=== PATIENT | female | born 1955 | race Caucasian/White ===

== ENCOUNTER → 2016-12-12 | Outpatient (CLI) | payer OTHER | LOC: FIMAGING 14:40 | PROVIDERS: ATTEND Nurse Practitioner Women's Health | DX: Z12.31 Encounter for screening mammogram for malignant neoplasm of breast (principal); Z80.3 Family history of malignant neoplasm of breast | CPT/HCPCS: G0202 ==

== ENCOUNTER → 2017-01-23 | Outpatient (CLI) | payer OTHER | LOC: FIMAGING 11:08 | PROVIDERS: ATTEND Nurse Practitioner Women's Health | DX: Z13.820 Encounter for screening for osteoporosis (principal); M85.9 Disorder of bone density and structure, unspecified ==

== ENCOUNTER 2017-03-18 09:02 | Emergency (ER) | payer OTHER ==
--- NOTE | 2017-03-18 09:18 | CPEKG ---
Heart Rate: 51 RR Interval: 1176 P-R Interval: 200 QRSD Interval: 84 QT Interval: 440 QTC Interval: 406 P [place]: 52 QRS [place]: 55 T Wave [place]: 64 EKG Severity - BORDERLINE ECG - EKG Impression: SINUS RHYTHM EKG Impression: BORDERLINE T ABNORMALITIES, ANT-LAT LEADS Electronically Signed By: Rocio Crow 18-Mar-2017 15:27:18
--- NOTE | 2017-03-18 10:04 | EDPHY ---
H & P Time Seen by Provider: 03/18/17 09:50 HPI/ROS: CHIEF COMPLAINT: Chest pain HISTORY OF PRESENT ILLNESS: The patient is a 61-year-old female who presents emergency department with left-sided chest pain and neck pain. Patient states that she has a history of coronary artery disease. 3 years ago she came to the emergency department for left neck pain. She underwent a significant workup and nothing was found. However, 3 months later, Dr. Price performed a coronary catheterization and stents were placed. Patient states she woke this morning at 6:00 a.m. with a sharp left-sided chest pain. She states she has pain radiating to her neck. This is more vague and strange. Her neck pain is similar to previous episode of neck pain when she ultimately had coronary stenting. She has never had chest pain previously. She denies leg pain or swelling. No cough or shortness of breath. No fevers or chills. REVIEW OF SYSTEMS: My complete review of systems is negative except as mentioned in the HPI. Past Medical/Surgical History: Includes coronary artery disease, hypothyroidism Past surgical history: Includes tubal ligation, cardiac stent placement Social history: The patient does not smoke Smoking Status: Never smoked Physical Exam: Vitals noted. 161/79, 59, 18, 99% on room air GENERAL: Well-appearing, in no acute distress, alert. HEENT: Eyes normal to inspection, normal pharynx, no signs of dehydration. NECK: [No thyromegaly, no lymphadenopathy, supple. RESPIRATORY: Clear to auscultation bilaterally, no rales, rhonchi or wheezing. CVS: Regular rate and rhythm, no rubs, murmurs, or gallops. No chest wall tenderness palpation. No rash. ABDOMEN: Soft, nontender, nondistended, no organomegaly. BACK: Normal to inspection, no CVA tenderness. SKIN: Normal color, no rash, warm, dry. No pallor. EXTREMITIES: No pedal edema, no calf tenderness, no Homans sign or cords, no joint swelling. NEURO/PSYCH: Alert and oriented x3, normal mood and affect, normal motor sensory exam. No obvious cranial nerve deficit. Constitutional: Initial Vital Signs Temperature (C) 36.5 C 03/18/17 09:05 Heart Rate 59 L 03/18/17 09:05 Respiratory Rate 18 03/18/17 09:05 Blood Pressure 161/79 H 03/18/17 09:05 O2 Sat (%) 99 03/18/17 09:05 O2 Delivery Mode Room Air Allergies/Adverse Reactions: No Known Allergies Allergy (Verified 03/18/17 09:08) Home Medications: Medication Instructions Recorded Aspirin EC [Aspirin EC 81 mg (*)] 81 mg PO DAILY 03/18/17 Nebivolol HCl [Bystolic] 2.5 mg PO 03/18/17 Rosuvastatin Calcium [Crestor 20mg 20 mg PO DAILY 03/18/17 (*)] THYROID 30 mg PO 03/18/17 Medical Decision Making - Diagnostics Imaging Results: Imaging Impressions Chest X-Ray 03/18/17 10:07 Impression: Mild cardiomegaly. ED Course/Re-evaluation: In the emergency department I discussed possible etiologies with the patient. I answered all her questions. IV was placed. Laboratory studies were obtained. EKG and chest x-ray were ordered. EKG shows normal sinus rhythm, normal rate, normal axis, normal intervals. There are no ST or T-wave abnormalities. EKG is normal as interpreted by me. Unchanged from previous on 05/15/2014 Troponin and laboratory studies are unremarkable. I discussed the case with Dr. Espinal from Cardiology. He came to the emergency department to evaluate the patient. After Dr. Espinal evaluation, he recommended patient had repeat EKG and troponin at noon. If these are negative the patient can be discharged. I rechecked the patient while here. She was resting comfortably in the bed. She had no complaints. She was noted to be bradycardic. I discussed with the patient. She states she is bradycardic at baseline. It has worsened slightly since she started to beta gail. She denies any lightheadedness or dizziness. Repeat troponin is negative. EKG is unchanged. It is noted to show bradycardia 42. I went and re-evaluated the patient. She is not lightheaded or dizzy. She had normal blood pressure. She states her heart rate does range in the 30s to 40s at baseline. I discussed the results with the patient. I answered all her questions. She is given warnings prior to leaving. She will return with worsening symptoms. Differential Diagnosis: My differential includes but is not limited to ACS, acute DC, dysrhythmia, pulmonary embolus, pneumonia, bronchitis, dissection, aneurysm - Data Points Laboratory Results: Laboratory Results 03/18/17 09:18 03/18/17 09:18 03/18/17 03/18/17 03/18/17 12:52 09:18 09:18 WBC RBC Hgb Hct MCV MCH MCHC RDW Plt Count MPV Neut % (Auto) Lymph % (Auto) [place] % (Auto) Eos % (Auto) Baso % (Auto) Nucleat RBC Rel Count Absolute Neuts (auto) Absolute Lymphs (auto) Absolute Monos (auto) Absolute Eos (auto) Absolute Basos (auto) Absolute Nucleated RBC Immature Gran % Immature Gran # D-Dimer < 0.27 ug/mLFEU ug/mLFEU (0.00-0.50) Sodium 145 mEq/L mEq/L (135-145) Potassium 4.6 mEq/L mEq/L (3.5-5.2) Chloride 105 mEq/L mEq/L (97-110) Carbon Dioxide 24 mEq/l mEq/l (22-31) Anion Gap 16 mEq/L mEq/L (8-16) BUN 16 mg/dL mg/dL (7-23) Creatinine 0.8 mg/dL mg/dL (0.6-1.0) Estimated GFR > 60 Glucose 93 mg/dL mg/dL (70-100) Calcium 10.0 mg/dL mg/dL (8.5-10.4) Total Bilirubin 0.5 mg/dL mg/dL (0.1-1.4) Conjugated Bilirubin 0.3 mg/dL mg/dL (0.0-0.5) Unconjugated Bilirubin 0.2 mg/dL mg/dL (0.0-1.1) AST 27 IU/L IU/L (14-46) ALT 39 IU/L IU/L (9-52) Alkaline Phosphatase 50 IU/L IU/L (38-126) Troponin I < 0.012 ng/mL ng/mL < 0.012 ng/mL ng/mL (0.000-0.034) (0.000-0.034) Total Protein 7.2 g/dL g/dL (6.3-8.2) Albumin 4.5 g/dL g/dL (3.5-5.0) Lipase 67 IU/L IU/L (23-300) 03/18/17 09:18 WBC 5.25 10^3/uL 10^3/uL (3.80-9.50) RBC 4.59 10^6/uL 10^6/uL (4.18-5.33) Hgb 14.8 g/dL g/dL (12.6-16.3) Hct 43.0 % % (38.0-47.0) MCV 93.7 fL fL (81.5-99.8) MCH 32.2 pg pg (27.9-34.1) MCHC 34.4 g/dL g/dL (32.4-36.7) RDW 11.8 % % (11.5-15.2) Plt Count 184 10^3/uL 10^3/uL (150-400) MPV 10.0 fL fL (8.7-11.7) Neut % (Auto) 54.1 % % (39.3-74.2) Lymph % (Auto) 37.5 % % (15.0-45.0) [place] % (Auto) 6.5 % % (4.5-13.0) Eos % (Auto) 1.1 % % (0.6-7.6) Baso % (Auto) 0.6 % % (0.3-1.7) Nucleat RBC Rel Count 0.0 % % (0.0-0.2) Absolute Neuts (auto) 2.84 10^3/uL 10^3/uL (1.70-6.50) Absolute Lymphs (auto) 1.97 10^3/uL 10^3/uL (1.00-3.00) Absolute Monos (auto) 0.34 10^3/uL 10^3/uL (0.30-0.80) Absolute Eos (auto) 0.06 10^3/uL 10^3/uL (0.03-0.40) Absolute Basos (auto) 0.03 10^3/uL 10^3/uL (0.02-0.10) Absolute Nucleated RBC 0.00 10^3/uL 10^3/uL (0-0.01) Immature Gran % 0.2 % % (0.0-1.1) Immature Gran # 0.01 10^3/uL 10^3/uL (0.00-0.10) D-Dimer Sodium Potassium Chloride Carbon Dioxide Anion Gap BUN Creatinine Estimated GFR Glucose Calcium Total Bilirubin Conjugated Bilirubin Unconjugated Bilirubin AST ALT Alkaline Phosphatase Troponin I Total Protein Albumin Lipase Medications Given: Discontinued Medications Aspirin (Aspirin) 324 mg PO EDNOW ONE Stop: 03/18/17 10:08 Last Admin: 03/18/17 10:11 Dose: 324 mg Departure - Departure Disposition: Home, Routine, Self-Care Clinical Impression: Chest pain Qualifiers: Chest pain type: unspecified Qualified Code(s): R07.9 - Chest pain, unspecified Condition: Good Instructions: Chest Pain (ED) Additional Instructions: Return with increasing chest pain, shortness of breath, fever, chills, persistent cough or any other concerns. Referrals: Mirtha Remy MD [Primary Care Provider] - As per Instructions Yesenia Singh MD [Medical Doctor] - 2-3 days, call for appt.
[2017-03-18] MEDS ORDERED: ASPIRIN 81 MG CHEWABLE TAB PO ONE (10:07)
[2017-03-18 10:13] LABS: PLATELET COUNT 184 10^3/uL (150-400)
--- NOTE | 2017-03-18 12:16 | GCON ---
[f rep st] CONSULTATION CARDIOLOGY CONSULTATION DATE OF CONSULTATION: 03/18/2017 REFERRING PHYSICIAN: Yesenia Singh MD INDICATION: Chest pain, known CAD. HISTORY OF PRESENT ILLNESS: The patient is a pleasant 61-year-old female, who is typically followed as an outpatient by Dr. Yesenia Singh. She has known coronary disease. She initially presented back in 2004 with chest and left neck discomfort. She was worked up by Dr. Rasheed Noland. At that time, antionette arently, she had a stress test, which indicated apical ischemia. That prompted the performance of a cardiac catheterization and ultimately PCI and stenting of the LAD and balloon angioplasty of what wa s likely a diagonal branch. Additionally, she has a history of palpitations related to PVCs. Her ri sk factors include hypertension and hyperlipidemia. She is seen in the emergency department with chest and left jaw discomfort. She notes that she has b een under a great deal of stress recently. Apparently, her mother about a month ago, and she is in a contentious relationship with her brother regarding the estate. Over the last month, she has b een experiencing worsening palpitations. Additionally, she has had a near-continuous sensation of le ft neck and jaw "unusual sensation." She does not describe this as pain. Occasionally, it is burnin g in character. The symptoms occur both with physical activities and at rest. They are not associat ed with meals. She has not been sleeping well. She also describes fatigue. She came into the emerg ency department today because she also experienced fleeting left-sided breast pain. This was describ ed as sharp and evolving into a dull pain. She had episodes where she had pain for 10 minutes, and t hen the pain would go away for 5-10 minutes and return. Currently, these symptoms are gone. The sym ptoms began about 6 o'clock this morning. On arrival, she was hypertensive with a blood pressure 161/79 and a resting heart rate of 59 beats pe r minute. Her initial electrocardiogram demonstrated sinus bradycardia with T-wave inversions noted in V2 and V3. These are unchanged when compared to prior ECGs over the last several years. Her init ial lab tests were normal, including a troponin. REVIEW OF SYSTEMS: Full 10-point review of systems was performed and was otherwise negative. Specif ically, she denies fever, chills, and sweats. There is no history of cough or hemoptysis. She has n o history of calf pain or tenderness. There is no history of prior DVT or PE. The pain was not desc ribed as ripping or tearing in character. She has had no recent injury to the chest wall. PAST MEDICAL HISTORY: 1. Coronary artery disease, as described above. 2. Hypertension. 3. Hyperlipidemia. 4. History of palpitations related to PVCs, currently treated with Bystolic. 5. History of anxiety. 6. History of hypothyroidism. PAST SURGICAL HISTORY: With the exception of previous PCI and stenting and balloon angioplasty, is n egative. CURRENT MEDICATIONS: Include [place] Thyroid, baby aspirin, Crestor 20 mg daily, and low-dose Bystoli c. She is unsure of the current dose. ALLERGIES: She has no drug allergies. SOCIAL HISTORY: She has been for 11 years. She has 2 children, who are grown and out of [facility] [employer]. 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 She does drink caffeine. She denies alcohol, drugs, and tobacco. She exercises somewhat sporadi arsalan. She does like to go for walks and oftentimes will walk for 30-45 minutes at a time. Walking does not aggravate her chest discomfort. PHYSICAL EXAMINATION: VITAL SIGNS: Her most recent blood pressure is 125/85. Her heart rates have been consistently in the mid 40s to mid 50s. Respiratory rate is 18. Room air saturation is 98%. G ENERAL: She is a healthy white female in no acute distress. HEENT: Normocephalic, atraumatic. She has anicteric sclerae. She has 2+ carotids. There is no jugular venous distention. RESPIRATORY: She speaks in full sentences, using no accessory muscles. On auscultation, she has clear lung eid bilaterally. CARDIAC: Precordial inspection is unremarkable. She has no reproducible chest wall t enderness. PMI is indistinct. On auscultation, she is bradycardic without murmurs, gallops, or rubs . ABDOMEN: Soft, nontender. No masses or hepatosplenomegaly. Nonpalpable aorta. EXTREMITIES: Wa rm, well perfused. No lower extremity edema. VASCULATURE: 2+ radial and dorsal pedal pulses. NEUR OLOGIC: Alert and oriented. Pleasant mood and affect. Responds to questions appropriately. DATABASE: Her ECG and cardiac enzymes are as described above. White blood cell count 5.25, hematocr it 43. Platelet count is 184. D-dimer is less than 0.27. Complete metabolic profile is normal, inc luding lipase. IMPRESSION: The patient is a pleasant 61-year-old female, who has a history of atypical chest pain a nd known coronary artery disease, as well as palpitations related to premature ventricular contractio ns. She presents now with highly atypical symptoms of intermittent left-sided fleeting chest discomf ort as well as near-continuous left neck burning discomfort. On examination, she has a very normal p hysical examination and appears to be very comfortable. Her pain now has resolved, with the exceptio n of this ongoing vague left neck fullness. Initial enzymes and EKG are benign. Overall, I think the likelihood of underlying recurrent ischemic heart disease contributing to her cu rrent symptoms is low. I think a lot of her symptoms are related to recent significant stressors in her life, including the recent of her mother and a contentious estate settlement with her broth er. Additionally, she had a nuclear stress test in our office done in August, which was normal. RECOMMENDATIONS: 1. I think she should be monitored in the emergency department for another several hours. 2. I would like her to have a troponin drawn at noon. As long as that troponin is negative and she remains comfortable, I think she can be discharged home. 3. We will expedite followup as an outpatient with Dr. Singh. /[id number]/MODL
--- NOTE | 2017-03-18 12:59 | CPEKG ---
Heart Rate: 42 RR Interval: 1429 P-R Interval: 204 QRSD Interval: 88 QT Interval: 488 QTC Interval: 408 P [place]: 18 QRS [place]: 36 T Wave [place]: 54 EKG Severity - OTHERWISE NORMAL ECG - EKG Impression: SLOW SINUS ARRHYTHMIA, RATE 35-49 Electronically Signed By: Rocio Crow 18-Mar-2017 15:27:18
[2017-03-18 13:01] VITALS: PULSE 48; RESP 16
[2017-03-18 13:59] VITALS: BP 135/86; TEMP 98.2; O2SAT 97
== END 2017-03-18 13:59 | disposition home or self-care (01) ==
DX: R07.9 Chest pain, unspecified (principal); I25.10 Atherosclerotic heart disease of native coronary artery without angina pectoris; Z79.82 Long term (current) use of aspirin

== ENCOUNTER → 2018-02-26 | Outpatient (CLI) | payer OTHER | LOC: FIMAGING 12:13 | PROVIDERS: ATTEND Nurse Practitioner Women's Health | DX: Z12.31 Encounter for screening mammogram for malignant neoplasm of breast (principal); Z80.3 Family history of malignant neoplasm of breast ==

== ENCOUNTER → 2018-06-19 | Outpatient (CLI) | payer OTHER | LOC: FIMAGING 11:28 | PROVIDERS: ATTEND Internal Medicine | DX: M54.2 Cervicalgia (principal); R09.89 Other specified symptoms and signs involving the circulatory and respiratory systems ==